=== PATIENT | female | born 1990 | race Asian ===

== ENCOUNTER 2016-07-18 13:08 | Emergency (ER) | payer BC ==
[~2016-07-18] VITALS: Ht 170.2 cm; Wt 98.0 kg
[2016-07-18 13:30] VITALS: BP 141/70; PULSE 85; RESP 16; TEMP 98.9; O2SAT 100
--- NOTE | 2016-07-18 13:34 | NUR ---
Note nelson in EDM - 07/18/16 at 1435 by BRETT Pt report received from TAMMIE Calvo. Pt states that she nearly passed out in chair while at work. Pt states that she has been having heavy mences x 4 per month x 2 months. Pt also c/o lower abdominal pain. Family member at bedside.
--- NOTE | 2016-07-18 13:34 | NUR ---
Ambulatory to bed 7, placed in gown for evaluation
--- NOTE | 2016-07-18 13:45 | NUR ---
Dr. Woo at bedside to assess pt.
[2016-07-18 14:15] LABS: BILIRUBIN,URINE NEGATIVE (NEGATIVE); BLOOD, URINE 3+ (NEGATIVE); CLARITY/URINE CLEAR (CLEAR); COLOR,URINE YELLOW (YELLOW); GLUCOSE,URINE NEGATIVE (NEGATIVE); KETONES,URINE NEGATIVE (NEGATIVE); LEUKOCYTE ESTERASE ,URINE TRACE (NEGATIVE); NITRITE, URINE NEGATIVE (NEGATIVE); PH,URINE 6.5 (5.0-8.0); PROTEIN URINE NEGATIVE (NEGATIVE); UROBILINOGEN,URINE 0.2 (0.2-1.0)
[2016-07-18 14:24] LABS: BASOPHILS % (AUTO) 0.3 % (0.0-2.0); EOSINOPHILS % (AUTO) 0.6 % (0.0-4.0); HEMATOCRIT 40.2 % (36-48); HEMOGLOBIN 13.5 g/dL (12.0-16.0); LYMPHOCYTES # (AUTO) 1.6 K/uL (1.0-5.5); LYMPHOCYTES % (AUTO) 18.9 % (20.5-51.5); MEAN CORPUSCULAR HEMOGLOBIN 30 pg (27-31); MEAN CORPUSCULAR HGB CONC 34 % (32-36); MEAN CORPUSCULAR VOLUME 90 fL (79.0-98.0); MONOCYTES # (AUTO) 0.4 K/uL (0.0-1.0); MONOCYTES % (AUTO) 4.8 % (1.7-9.3); NEUTROPHILS # (AUTO) 6.3 K/uL (1.8-7.7); NEUTROPHILS % (AUTO) 75.4 % (40.0-70.0); PLATELET COUNT (AUTO) 325 K/uL (130-430); RED BLOOD CELL COUNT(AUTO) 4.48 MIL/uL (4.2-6.2); RED CELL DISTRIBUTION WIDTH 12.1 % (9.0-15.0); WHITE BLOOD COUNT (AUTO) 8.3 K/uL (4.8-10.8)
[2016-07-18 14:33] LABS: BACTERIA,URINE FEW /HPF (None Seen); RBC,URINE 0-3 /HPF (0-3); WBC,URINE 0-3 /HPF (0-3)
[2016-07-18 14:34] LABS: MUCUS,URINE None Seen /LPF (None Seen)
[2016-07-18 14:48] LABS: CALCIUM 9.6 mg/dL (8.4-11.0); CREATININE 0.76 mg/dL (0.55-1.30); POTASSIUM 4.2 mmol/L (3.5-5.1)
[2016-07-18 14:59] LABS: ALBUMIN 4.3 g/dL (3.4-4.8); TOTAL BILIRUBIN 0.5 mg/dL (0.0-1.0); TOTAL PROTEIN, SERUM 8.3 g/dL (6.4-8.3)
[2016-07-18 15:40] VITALS: BP 126/68; PULSE 76; RESP 20; TEMP 98.2; O2SAT 100
--- NOTE | 2016-07-18 15:40 | NUR ---
Patient given written and verbal discharge instructions and verbalizes understanding. ER MD discussed with patient the results and treatment provided. Patient in stable condition. ID arm band removed. IV catheter removed intact and dressing applied, no active bleeding. Rx of Ortho Tri-Cyclen given. Patient educated on pain management and to follow up with PMD. Pain Scale 0/10. Opportunity for questions provided and answered.
== END 2016-07-18 15:40 | disposition home or self-care (01) ==
LOC: SED 13:08
DX: N94.6 Dysmenorrhea, unspecified (principal); R55 Syncope and collapse
CPT/HCPCS: 36415; 76830-TC; 76857; 80053; 81000-TC; 84702-TC; 85025; 86900; 86901; 99285

== ENCOUNTER 2018-11-01 00:39 | Emergency (ER) | payer BC, MEDICAID ==
[~2018-11-01] VITALS: Ht 170.2 cm; Wt 93.9 kg
[2018-11-01 01:00] VITALS: BP_SYST 138
[2018-11-01] MEDS ORDERED: OMEP40CA33 PO (01:08)
[2018-11-01] MEDS ORDERED: SUCR1TAB78 PO (01:08)
[2018-11-01] MEDS ORDERED: ACET-2634 PO (01:11)
[2018-11-01] MEDS ORDERED: NACL 0.9% 1,000 ML IV ONE (01:27)
[2018-11-01] MEDS ORDERED: KETOROLAC TROMETHAMINE 30 MG VIAL IVP ONE (01:30)
[2018-11-01] MEDS ORDERED: ONDANSETRON HCL 4 MG/2 ML VIAL IVP ONE (01:30)
[2018-11-01 01:43] LABS: BILIRUBIN,URINE NEGATIVE (NEGATIVE); BLOOD, URINE NEGATIVE (NEGATIVE); CLARITY/URINE CLEAR (CLEAR); COLOR,URINE YELLOW (YELLOW); GLUCOSE,URINE NEGATIVE (NEGATIVE); KETONES,URINE NEGATIVE (NEGATIVE); LEUKOCYTE ESTERASE ,URINE 1+ (NEGATIVE); NITRITE, URINE NEGATIVE (NEGATIVE); PROTEIN URINE NEGATIVE (NEGATIVE); UROBILINOGEN,URINE 0.2 (0.2-1.0)
[2018-11-01] MEDS ORDERED: PANTOPRAZOLE SODIUM 40 MG/VIAL (PROTONIX) IVP ONE (01:45)
[2018-11-01 01:49] LABS: RBC,URINE 0-3 /HPF (0-3)
[2018-11-01 01:50] LABS: BACTERIA,URINE FEW /HPF (None Seen)
[2018-11-01 01:57] LABS: BASOPHILS # (AUTO) 0.1 K/uL (0.0-0.2); BASOPHILS % (AUTO) 0.7 % (0.0-2.0); EOSINOPHILS # (AUTO) 0.2 K/uL (0.0-0.4); HEMATOCRIT 37.5 % (36-48); HEMOGLOBIN 12.6 g/dL (12.0-16.0); LYMPHOCYTES # (AUTO) 3.3 K/uL (1.0-5.5); LYMPHOCYTES % (AUTO) 42.6 % (20.5-51.5); MEAN CORPUSCULAR HEMOGLOBIN 30 pg (27-31); MEAN CORPUSCULAR HGB CONC 34 % (32-36); MEAN CORPUSCULAR VOLUME 90 fL (79.0-98.0); MONOCYTES # (AUTO) 0.5 K/uL (0.0-1.0); MONOCYTES % (AUTO) 6.7 % (1.7-9.3); NEUTROPHILS # (AUTO) 3.6 K/uL (1.8-7.7); PLATELET COUNT (AUTO) 301 K/uL (130-430); RED BLOOD CELL COUNT(AUTO) 4.16 MIL/uL (4.2-6.2); RED CELL DISTRIBUTION WIDTH 12.6 % (9.0-15.0); WHITE BLOOD COUNT (AUTO) 7.7 K/uL (4.8-10.8)
[2018-11-01 02:12] LABS: CALCIUM 9.3 mg/dL (8.4-11.0); CREATININE 0.78 mg/dL (0.55-1.30); POTASSIUM 3.5 mmol/L (3.5-5.1)
[2018-11-01 02:18] LABS: ALBUMIN 3.5 g/dL (3.4-4.8); TOTAL BILIRUBIN 0.4 mg/dL (0.0-1.0)
[2018-11-01] MEDS ORDERED: cefTRIAXone 1 GM in D5W 50 ML IV ONE (02:30)
[2018-11-01] MEDS ORDERED: cefTRIAXone 1 GM VIAL ONE (02:36)
[2018-11-01 04:45] VITALS: BP_SYST 128
== END 2018-11-01 04:45 | disposition home or self-care (01) ==
LOC: SED 00:39
DX: K57.90 Diverticulosis of intestine, part unspecified, without perforation or abscess without bleeding (principal); K21.9 Gastro-esophageal reflux disease without esophagitis; Z79.899 Other long term (current) drug therapy
CPT/HCPCS: 36415; 74176; 80053; 81000; 81025; 85025; 87040; 87086; 96365; 96375; 99284; C9113; J0696; J1885; J2405; J7030

== ENCOUNTER 2018-11-20 23:24 | Emergency (ER) | payer MEDICAID ==
[~2018-11-20] VITALS: Ht 170.2 cm; Wt 93.9 kg
[~2018-11-20 23:24] MED LIST: ACET-2634 PO; OMEP40CA33 PO; SUCR1TAB78 PO
[2018-11-21 00:21] VITALS: BP_SYST 123
[2018-11-21 02:45] LABS: BILIRUBIN,URINE NEGATIVE (NEGATIVE); BLOOD, URINE 2+ (NEGATIVE); CLARITY/URINE CLEAR (CLEAR); COLOR,URINE YELLOW (YELLOW); GLUCOSE,URINE NEGATIVE (NEGATIVE); KETONES,URINE NEGATIVE (NEGATIVE); LEUKOCYTE ESTERASE ,URINE TRACE (NEGATIVE); NITRITE, URINE NEGATIVE (NEGATIVE); PH,URINE 6.5 (5.0-8.0); PROTEIN URINE NEGATIVE (NEGATIVE); UROBILINOGEN,URINE 0.2 (0.2-1.0)
[2018-11-21 02:49] LABS: BACTERIA,URINE FEW /HPF (None Seen)
[2018-11-21 03:52] VITALS: BP_SYST 123
== END 2018-11-21 03:52 | disposition home or self-care (01) ==
LOC: SED 23:24
DX: N39.0 Urinary tract infection, site not specified (principal); K21.9 Gastro-esophageal reflux disease without esophagitis; Z79.899 Other long term (current) drug therapy
CPT/HCPCS: 81000-TC; 81025; 99283

== ENCOUNTER 2023-05-07 14:21 | Emergency (ER) | payer MEDICAID ==
[~2023-05-07] VITALS: Ht 170.2 cm; Wt 90.3 kg
[~2023-05-07 14:21] MED LIST changes: +OMEP40CA20 PO; -OMEP40CA33 PO; +SUCR1TAB2 PO; -SUCR1TAB78 PO
[2023-05-07 14:41] VITALS: BP_SYST 146; PULSE 125; RESP 22; TEMP 98.1; O2SAT 97
[2023-05-07 16:13] LABS: INFLUENZA TYPE B NEGATIVE (NEGATIVE)
[2023-05-07 16:21] LABS: INFLUENZA TYPE A POSITIVE (NEGATIVE)
[2023-05-07] MEDS ORDERED: OSEL75CA PO (16:26)
[2023-05-07 16:38] VITALS: BP_SYST 146; PULSE 125; RESP 22; TEMP 98.1; O2SAT 97
== END 2023-05-07 16:40 | disposition home or self-care (01) ==
LOC: SED 14:21
DX: J10.1 Influenza due to other identified influenza virus with other respiratory manifestations (principal); R50.9 Fever, unspecified; R05.9 Cough, unspecified; R09.81 Nasal congestion; Z88.4 Allergy status to anesthetic agent; Z79.899 Other long term (current) drug therapy; Z20.822 Contact with and (suspected) exposure to COVID-19
CPT/HCPCS: 36415; 99283